=== PATIENT | male | born 1960 | race African-American/Black ===

== ENCOUNTER 2018-12-28 22:28 | Inpatient (IN) | payer OTHER, MEDICAID ==
[~2018-12-28] VITALS: Ht 177.8 cm; Wt 74.4 kg
[2018-12-29] MEDS ORDERED: FUROSEMIDE 40MG/4ML VIAL IV ONE (00:15)
[2018-12-29 00:47] LABS: BASOPHILS % 2.9 % (0.0-2.0); EOSINOPHILS % 6.3 % (0.0-5.0); HEMATOCRIT. 26.9 % (42.0-52.0); HEMOGLOBIN. 8.5 g/dL (14.0-18.0); LYMPHOCYTES % 9.6 % (20.0-50.0); MEAN CORPUSCULAR HEMOGLOBIN 25.8 pg (28.0-32.0); MEAN CORPUSCULAR VOLUME 81.9 fL (80.0-94.0); MEAN PLATELET VOLUME 9.2 fl (7.4-10.4); MONOCYTES % 9.2 % (2.0-8.0); PLATELET 271 x1000/uL (130-400); RED BLOOD CELL COUNT 3.29 mill/uL (4.7-6.1); RED CELL DISTRIBUTION WIDTH 25.1 % (11.6-14.6)
[2018-12-29 00:54] LABS: CHLORIDE 106 mEq/L (98-107)
[2018-12-29 01:10] LABS: INR 1.1
[2018-12-29 01:19] LABS: PLATELET ESTIMATE NORMAL
[2018-12-29] MEDS ORDERED: HYDROCODONE/ACETAMINOPHEN 5/325MG TABLET PO ONE (05:00)
[2018-12-29] MEDS ORDERED: ONDANSETRON HCL 4MG/2ML INJ IV PRN (10:00)
[2018-12-29] MEDS ORDERED: ACETAMINOPHEN 325MG TABLET PO PRN (10:00)
[2018-12-29 10:26] LABS: CLARITY URINE CLEAR (CLEAR); COLOR URINE YELLOW (YELLOW); KETONES URINE NEGATIVE (NEGATIVE); LEUKOCYTE ESTERASE URINE NEGATIVE (NEGATIVE); NITRITE URINE NEGATIVE (NEGATIVE); OCCULT BLOOD URINE NEGATIVE (NEGATIVE); PROTEIN URINE TRACE (NEGATIVE); SPECIFIC GRAVITY URINE 1.011 (1.005-1.030)
[2018-12-29 10:36] LABS: *AMPHETAMINES SCREEN URINE NEGATIVE (NEGATIVE); *BARBITURATES SCREEN URINE NEGATIVE (NEGATIVE); *BENZODIAZEPINES SCREEN URINE NEGATIVE (NEGATIVE); *COCAINE SCREEN URINE NEGATIVE (NEGATIVE); METHADONE URINE SCREEN NEGATIVE (NEGATIVE)
[2018-12-29 10:37] LABS: CANNABINOID URINE SCREEN NEGATIVE (NEGATIVE); OPIATES URINE SCREEN PRESUMTIVE POSITIVE (NEGATIVE); PHENCYCLIDINE URINE SCREEN NEGATIVE (NEGATIVE)
[2018-12-29 11:02] LABS: HEMATOCRIT 26.9 % (42.0-52.0); HEMOGLOBIN 8.4 g/dL (14.0-18.0)
[2018-12-29 12:00] VITALS: BP 94/69
[2018-12-29] MEDS ORDERED: FUROSEMIDE 40MG/4ML VIAL IVP SCH (12:15)
[2018-12-29] MEDS: PANTOPRAZOLE SODIUM 40 MG/VIAL IV SCH ×2 (12:37→21:00)
[2018-12-29] MEDS: HYDROCODONE/ACETAMINOPHEN 5/325MG TABLET PO PRN ×2 (12:43→23:04)
[2018-12-29] MEDS ORDERED: CARV3.1242 MT (14:57)
[2018-12-29] MEDS ORDERED: ATOR40TA70 MT (14:57)
[2018-12-29] MEDS ORDERED: HYDR-4134 MT (14:58)
[2018-12-29] MEDS ORDERED: PROT40 PO (14:58)
[2018-12-29] MEDS ORDERED: POTA-81 MT (14:58)
[2018-12-29] MEDS ORDERED: ISOS30TA6 MT (14:58)
[2018-12-29] MEDS ORDERED: ALLO100T MT (14:58)
[2018-12-29] MEDS ORDERED: CYCL5TAB PO (14:58)
[2018-12-29] MEDS ORDERED: LEVO50TA8 MT (14:58)
[2018-12-29] MEDS ORDERED: LISI10TA5 MT (14:58)
[2018-12-29] MEDS ORDERED: SUCR1TAB PO (14:58)
[2018-12-29] MEDS ORDERED: FURO-151 PO (14:58)
[2018-12-29 16:34] LABS: TOTAL IRON BINDING CAPACITY 571 ug/dL (250-450)
[2018-12-29 16:52] LABS: FERRITIN 27 ng/mL (22-322)
[2018-12-29 16:57] LABS: VITAMIN B12 SERUM 1967 pg/mL (211-911)
[2018-12-29] MEDS: SUCRALFATE 1 G/10 ML UDC PO SCH ×2 (17:00→21:00)
[2018-12-29 17:03] LABS: HEPATITIS B SURFACE ANTIGEN NEGATIVE
[2018-12-29 17:18] VITALS: BP 100/70
[2018-12-29 17:33] LABS: HEPATITIS A AB IGM NEGATIVE (NEGATIVE)
[2018-12-29 19:19] LABS: HEMATOCRIT 31.1 % (42.0-52.0); HEMOGLOBIN 9.1 g/dL (14.0-18.0)
[2018-12-30 04:00] VITALS: BP 99/73
[2018-12-30 07:55] LABS: BASOPHILS % 3.9 % (0.0-2.0); EOSINOPHILS % 6.7 % (0.0-5.0); HEMATOCRIT. 28.2 % (42.0-52.0); HEMOGLOBIN. 8.8 g/dL (14.0-18.0); LYMPHOCYTES % 19.7 % (20.0-50.0); MEAN CORPUSCULAR HEMOGLOBIN 25.6 pg (28.0-32.0); MEAN CORPUSCULAR VOLUME 82.3 fL (80.0-94.0); MEAN PLATELET VOLUME 9.3 fl (7.4-10.4); NEUTROPHILS % 58.7 % (40.0-76.0); PLATELET 268 x1000/uL (130-400); RED BLOOD CELL COUNT 3.42 mill/uL (4.7-6.1); RED CELL DISTRIBUTION WIDTH 25.2 % (11.6-14.6)
[2018-12-30] MEDS: PANTOPRAZOLE SODIUM 40 MG/VIAL IV SCH (08:33)
[2018-12-30] MEDS: SUCRALFATE 1 G/10 ML UDC PO SCH (08:33)
[2018-12-30] MEDS: HYDROCODONE/ACETAMINOPHEN 5/325MG TABLET PO PRN (08:35)
[2018-12-30] MEDS ORDERED: SPIRONOLACTONE 25MG TABLET PO SCH (09:00)
[2018-12-30] MEDS ORDERED: LACTULOSE 20G/30ML UDC PO SCH (11:00)
[2018-12-30 11:59] VITALS: BP 112/69
[2018-12-30] MEDS ORDERED: FERROUS SULFATE 325MG TABLET PO SCH (13:10)
== END 2018-12-30 12:12 | disposition home or self-care (01) | DRG 377 ==
LOC: ER 12-29 00:19 → 7WST 12-29 03:01 → EDBEDREQ 12-29 03:17 → EDBEDREQTM 12-29 03:17 → ENRESERV 12-29 10:17
PROVIDERS: ADMIT Internal Medicine; ATTEND Internal Medicine
DX: K25.4 Chronic or unspecified gastric ulcer with hemorrhage (principal); E43 Unspecified severe protein-calorie malnutrition; N17.0 Acute kidney failure with tubular necrosis; E87.1 Hypo-osmolality and hyponatremia; B19.20 Unspecified viral hepatitis C without hepatic coma; K29.71 Gastritis, unspecified, with bleeding; F17.210 Nicotine dependence, cigarettes, uncomplicated; J44.9 Chronic obstructive pulmonary disease, unspecified; I50.9 Heart failure, unspecified; I11.0 Hypertensive heart disease with heart failure; K70.9 Alcoholic liver disease, unspecified; K80.20 Calculus of gallbladder without cholecystitis without obstruction; R74.0 Nonspecific elevation of levels of transaminase and lactic acid dehydrogenase [LDH]; R07.89 Other chest pain; I95.9 Hypotension, unspecified; R94.31 Abnormal electrocardiogram [ECG] [EKG]; Z79.899 Other long term (current) drug therapy; Z71.6 Tobacco abuse counseling; Z68.23 Body mass index [BMI] 23.0-23.9, adult
CPT/HCPCS: 36415; 71045; 76700; 80048; 80076; 80305; 81003; 82140; 82248; 82607; 82728; 82746; 83540; 83550; 83605; 83880; 84484; 85014; 85018; 86705; 86709; 86803; 87340; 93005; 93306; 93970; 99285; C9113; J1940; J2405

== ENCOUNTER 2019-01-11 06:59 | Inpatient (IN) | payer OTHER, MEDICAID ==
[2019-01-11] VITALS (15 sets, daily range): BP systolic 75–106; BP diastolic 41–76
[~2019-01-11] VITALS: Ht 177.8 cm; Wt 76.7 kg
[~2019-01-11 06:59] MED LIST: ALLO100T MT; ATOR40TA70 MT; CARV3.1242 MT; CYCL5TAB PO; FURO-151 PO; HYDR-4134 MT; ISOS30TA6 MT; LEVO50TA8 MT; LISI10TA5 MT; POTA-81 MT; PROT40 PO; SUCR1TAB PO
[2019-01-11] MEDS ORDERED: MORPHINE SULFATE 4 MG/ML CPJ (NOT FOR IM USE) IV STA (07:21)
[2019-01-11] MEDS ORDERED: ONDANSETRON HCL 4MG/2ML INJ IV STA (07:21)
[2019-01-11 07:55] LABS: MEAN CORPUSCULAR HEMOGLOBIN 22.7 pg (28.0-32.0); MEAN CORPUSCULAR VOLUME 76.2 fL (80.0-94.0); MEAN PLATELET VOLUME 8.7 fl (7.4-10.4); PLATELET 435 x1000/uL (130-400); RED BLOOD CELL COUNT 1.91 mill/uL (4.7-6.1); RED CELL DISTRIBUTION WIDTH 24.9 % (11.6-14.6)
[2019-01-11 08:02] LABS: CHLORIDE 108 mEq/L (98-107)
[2019-01-11 08:03] LABS: HEMATOCRIT. 14.6 % (42.0-52.0); HEMOGLOBIN. 4.3 g/dL (14.0-18.0)
[2019-01-11 08:04] LABS: INR 1.1; PARTIAL THROMBOPLASTIN TIME 28.5 sec (23.4-31.0); PROTHROMBIN TIME 11.5 sec (9.6-11.0)
[2019-01-11 08:06] LABS: ETHANOL BLOOD < 10 mg/dL
[2019-01-11 08:30] LABS: NUCLEATED RED BLOOD CELLS 6 /100 WBC
[2019-01-11 08:31] LABS: PLATELET ESTIMATE INCREASED
[2019-01-11] MEDS ORDERED: OCTREOTIDE 1,000 MCG in SODIUM CHLORIDE 0.9% 100 ML IV ONE (09:15)
[2019-01-11] MEDS ORDERED: PANTOPRAZOLE 80 MG in SODIUM CHLORIDE 0.9% 100 ML IV SCH (09:15)
[2019-01-11] MEDS ORDERED: PANTOPRAZOLE SODIUM 40 MG/VIAL IV ONE ×2 (09:15→09:23)
[2019-01-11] MEDS ORDERED: OCTREOTIDE 1,000 MCG in SODIUM CHLORIDE 0.9% 100 ML IV NR (09:30)
[2019-01-11] MEDS ORDERED: PANTOPRAZOLE 80 MG in SODIUM CHLORIDE 0.9% 100 ML IV ONE (09:30)
[2019-01-11] MEDS ORDERED: MAGNESIUM/ALUMINUM HYDROXIDE/SIMETHICONE 30ML UDC PO PRN (15:30)
[2019-01-11] MEDS ORDERED: CLONIDINE 0.1MG TABLET PO PRN (15:30)
[2019-01-11] MEDS ORDERED: ONDANSETRON HCL 4MG/2ML INJ IV PRN (15:30)
[2019-01-11] MEDS: MORPHINE SULFATE 2 MG/ML CPJ (NOT FOR IM USE) IV PRN ×2 (15:44→22:03)
[2019-01-11 17:21] LABS: *AMPHETAMINES SCREEN URINE NEGATIVE (NEGATIVE); *BARBITURATES SCREEN URINE NEGATIVE (NEGATIVE); *BENZODIAZEPINES SCREEN URINE NEGATIVE (NEGATIVE); *COCAINE SCREEN URINE NEGATIVE (NEGATIVE); METHADONE URINE SCREEN NEGATIVE (NEGATIVE); OPIATES URINE SCREEN PRESUMTIVE POSITIVE (NEGATIVE)
[2019-01-11 17:22] LABS: CANNABINOID URINE SCREEN NEGATIVE (NEGATIVE); PHENCYCLIDINE URINE SCREEN NEGATIVE (NEGATIVE)
[2019-01-11 18:42] LABS: TOTAL IRON BINDING CAPACITY 562 ug/dL (250-450)
[2019-01-11] MEDS ORDERED: BENZONATATE 100MG CAPSULE PO PRN (18:45)
[2019-01-11 19:20] LABS: HEMATOCRIT 22.7 % (42.0-52.0); MEAN CORPUSCULAR HEMOGLOBIN 24.2 pg (28.0-32.0); MEAN CORPUSCULAR VOLUME 84.4 fL (80.0-94.0); PLATELET 373 x1000/uL (130-400); RED CELL DISTRIBUTION WIDTH 23.1 % (11.6-14.6)
[2019-01-11 19:27] LABS: HEMOGLOBIN 6.5 g/dL (14.0-18.0)
[2019-01-11] MEDS ORDERED: BISACODYL 5MG TABLET PO NR ×2 (20:00→23:00)
[2019-01-11] MEDS ORDERED: METOCLOPRAMIDE HCL 10MG/2ML VIAL IV NR ×2 (20:00→23:00)
[2019-01-11] MEDS ORDERED: SORBITOL 70% SOLN 30ML PO NR ×2 (21:00→23:55)
[2019-01-11] MEDS ORDERED: PANTOPRAZOLE SODIUM 40 MG/VIAL IV SCH (21:00)
[2019-01-12] VITALS (15 sets, daily range): BP systolic 94–109; BP diastolic 54–78
[2019-01-12] MEDS ORDERED: BISACODYL 5MG TABLET PO NR (04:00)
[2019-01-12] MEDS ORDERED: METOCLOPRAMIDE HCL 10MG/2ML VIAL IV NR (04:00)
[2019-01-12] MEDS: MORPHINE SULFATE 2 MG/ML CPJ (NOT FOR IM USE) IV PRN ×2 (04:59→13:22)
[2019-01-12] MEDS ORDERED: SORBITOL 70% SOLN 30ML PO NR (05:00)
[2019-01-12] MEDS ORDERED: LEVOTHYROXINE SODIUM 50MCG TABLET PO SCH (07:30)
[2019-01-12] MEDS ORDERED: ATORVASTATIN CALCIUM 40MG TABLET PO SCH (09:00)
[2019-01-12] MEDS ORDERED: PANTOPRAZOLE SODIUM 40 MG/VIAL IV SCH (09:00)
[2019-01-12] MEDS ORDERED: ALLOPURINOL 100 MG TABLET PO SCH (09:00)
[2019-01-12 09:32] LABS: HEMATOCRIT 29.7 % (42.0-52.0); HEMOGLOBIN 9.4 g/dL (14.0-18.0); MEAN CORPUSCULAR HEMOGLOBIN 25.8 pg (28.0-32.0); MEAN CORPUSCULAR VOLUME 81.3 fL (80.0-94.0); PLATELET 435 x1000/uL (130-400); RED BLOOD CELL COUNT 3.65 mill/uL (4.7-6.1); RED CELL DISTRIBUTION WIDTH 21.7 % (11.6-14.6)
[2019-01-12 09:43] LABS: PHOSPHORUS 4.1 mg/dL (2.5-4.9)
[2019-01-12 10:02] LABS: FOLIC ACID (FOLATE) SERUM 18.9 ng/mL (>5.38)
[2019-01-12] MEDS ORDERED: FUROSEMIDE 40MG/4ML VIAL IVP SCH (11:30)
[2019-01-12] MEDS ORDERED: MIDAZOLAM HCL 5 MG/5 ML VIAL ONE (16:04)
[2019-01-12] MEDS ORDERED: FENTANYL CITRATE/PF 50MCG/ML 2ML VIAL ONE (16:05)
[2019-01-12] MEDS ORDERED: FENTANYL CITRATE/PF 50MCG/ML 2ML VIAL IV PRN (16:12)
[2019-01-12] MEDS ORDERED: MIDAZOLAM HCL 5 MG/5 ML VIAL IV PRN (16:13)
[2019-01-12] MEDS ORDERED: DIPHENHYDRAMINE 50MG/ML VIAL IV PRN (16:20)
[2019-01-12] MEDS ORDERED: DIPHENHYDRAMINE 50MG/ML VIAL ONE (16:21)
[2019-01-12] MEDS ORDERED: ALBUMIN HUMAN 25GM/100ML (25%) IV NR (17:00)
[2019-01-12 19:39] LABS: HEMATOCRIT 26.7 % (42.0-52.0); HEMOGLOBIN 8.3 g/dL (14.0-18.0); MEAN CORPUSCULAR HEMOGLOBIN 25.1 pg (28.0-32.0); MEAN CORPUSCULAR VOLUME 80.2 fL (80.0-94.0); PLATELET 404 x1000/uL (130-400); RED BLOOD CELL COUNT 3.33 mill/uL (4.7-6.1); RED CELL DISTRIBUTION WIDTH 21.7 % (11.6-14.6)
[2019-01-12] MEDS ORDERED: LORAZEPAM 1MG TABLET PO PRN (19:45)
[2019-01-12 20:05] LABS: CLARITY URINE CLEAR (CLEAR); COLOR URINE YELLOW (YELLOW); KETONES URINE NEGATIVE (NEGATIVE); LEUKOCYTE ESTERASE URINE NEGATIVE (NEGATIVE); NITRITE URINE NEGATIVE (NEGATIVE); OCCULT BLOOD URINE NEGATIVE (NEGATIVE); PROTEIN URINE NEGATIVE (NEGATIVE); SPECIFIC GRAVITY URINE 1.006 (1.005-1.030)
== END 2019-01-12 20:26 | disposition left against medical advice (07) | DRG 377 ==
LOC: ER 08:24 → 5EST 09:40 → EDBEDREQTM 09:43 → EDBEDREQSVC 09:43 → EDBEDREQ 09:43 → ENRESERV 10:15
PROVIDERS: ADMIT Internal Medicine; ATTEND Internal Medicine
PROC: 30233N1 Transfusion of Nonautologous Red Blood Cells into Peripheral Vein, Percutaneous Approach (ICD-10-PCS; 2019-01-11)
PROC: 0DB68ZX Excision of Stomach, Via Natural or Artificial Opening Endoscopic, Diagnostic (ICD-10-PCS; principal; 2019-01-12)
DX: K29.71 Gastritis, unspecified, with bleeding (principal); E43 Unspecified severe protein-calorie malnutrition; I50.23 Acute on chronic systolic (congestive) heart failure; J96.00 Acute respiratory failure, unspecified whether with hypoxia or hypercapnia; J18.9 Pneumonia, unspecified organism; I13.0 Hypertensive heart and chronic kidney disease with heart failure and stage 1 through stage 4 chronic kidney disease, or unspecified chronic kidney disease; N17.9 Acute kidney failure, unspecified; I42.9 Cardiomyopathy, unspecified; E87.1 Hypo-osmolality and hyponatremia; E87.2 Acidosis; J44.0 Chronic obstructive pulmonary disease with (acute) lower respiratory infection; K80.20 Calculus of gallbladder without cholecystitis without obstruction; K21.9 Gastro-esophageal reflux disease without esophagitis; K64.8 Other hemorrhoids; B19.20 Unspecified viral hepatitis C without hepatic coma; Z53.29 Procedure and treatment not carried out because of patient's decision for other reasons; D50.9 Iron deficiency anemia, unspecified; G90.8 Other disorders of autonomic nervous system; K59.00 Constipation, unspecified; E03.9 Hypothyroidism, unspecified; F17.210 Nicotine dependence, cigarettes, uncomplicated; I95.9 Hypotension, unspecified; N18.3 Chronic kidney disease, stage 3 (moderate); I27.20 Pulmonary hypertension, unspecified; I08.1 Rheumatic disorders of both mitral and tricuspid valves; K57.91 Diverticulosis of intestine, part unspecified, without perforation or abscess with bleeding; Z68.24 Body mass index [BMI] 24.0-24.9, adult; Z79.899 Other long term (current) drug therapy
CPT/HCPCS: 36415; 36430; 71045; 74176; 76700; 80048; 80061; 80076; 80305; 80320; 81003; 82140; 82270; 82607; 82746; 83540; 83550; 83605; 83735; 83880; 84100; 84443; 84484; 85027; 86850; 86900; 86920; 88305; 88313; 93005; 93970; 96365; 96375; 97162; 97166; 99291; C9113; J1200; J1940; J2250; J2270; J2354; J2405; J2765; J3010; J7050; P9016; P9047; G0480

== ENCOUNTER 2019-01-24 02:58 | Emergency (ER) | payer OTHER, MEDICAID ==
[~2019-01-24] VITALS: Ht 170.2 cm; Wt 70.0 kg
[2019-01-24] MEDS ORDERED: IPRATROPIUM BROMIDE (0.02%) 0.5MG/2.5ML NEB HHN STA (03:35)
[2019-01-24] MEDS ORDERED: ALBUTEROL (0.083%) 2.5MG/3ML NEB HHN STA (03:35)
[2019-01-24 04:26] LABS: HEMOGLOBIN. 8.5 g/dL (14.0-18.0); MEAN CORPUSCULAR HEMOGLOBIN 23.5 pg (28.0-32.0); MEAN CORPUSCULAR VOLUME 77.2 fL (80.0-94.0); MEAN PLATELET VOLUME 8.5 fl (7.4-10.4); PLATELET 313 x1000/uL (130-400); RED BLOOD CELL COUNT 3.63 mill/uL (4.7-6.1); RED CELL DISTRIBUTION WIDTH 24.5 % (11.6-14.6)
[2019-01-24 04:30] LABS: CHLORIDE 112 mEq/L (98-107)
[2019-01-24] MEDS ORDERED: POTASSIUM CHLORIDE INJ 40 MEQ in DEXT 5% WATER 250 ML IV NR (05:00)
[2019-01-24] MEDS ORDERED: FUROSEMIDE 40MG/4ML VIAL IVP NR (05:00)
[2019-01-24 05:31] LABS: NUCLEATED RED BLOOD CELLS 1 /100 WBC; PLATELET ESTIMATE NORMAL
[2019-01-24 05:41] VITALS: BP 121/84
== END 2019-01-24 06:39 | disposition left against medical advice (07) ==
LOC: ER 02:58
DX: I11.0 Hypertensive heart disease with heart failure (principal); I50.9 Heart failure, unspecified; R06.02 Shortness of breath; K21.9 Gastro-esophageal reflux disease without esophagitis; J44.9 Chronic obstructive pulmonary disease, unspecified; Z86.19 Personal history of other infectious and parasitic diseases; Z98.890 Other specified postprocedural states
CPT/HCPCS: 36415; 71045; 80053; 83880; 84484; 85025; 86850; 86900; 86901; 93005; 94660; 96365; 96375; 99284; J1940; J3480; J7060; J7611

== ENCOUNTER 2019-01-29 13:22 | Inpatient (IN) | payer OTHER, MEDICAID ==
[~2019-01-29] VITALS: Ht 170.2 cm; Wt 80.3 kg
[2019-01-29] MEDS ORDERED: IPRATROPIUM BROMIDE (0.02%) 0.5MG/2.5ML NEB HHN STA (13:50)
[2019-01-29] MEDS ORDERED: ALBUTEROL (0.083%) 2.5MG/3ML NEB HHN STA (13:50)
[2019-01-29] MEDS ORDERED: METHYLPREDNISOLONE SOD SUCC 125 MG/2 ML VIAL IV STA (13:50)
[2019-01-29] MEDS ORDERED: ASPIRIN 81MG TABLET PO ONE (14:00)
[2019-01-29] MEDS ORDERED: NITROGLYCERIN OINT 1GM/INCH UDPKT TD ONE (14:00)
[2019-01-29] MEDS ORDERED: FUROSEMIDE 40MG/4ML VIAL IV ONE (14:00)
[2019-01-29] MEDS ORDERED: ALBUTEROL (0.083%) 2.5MG/3ML NEB ONE (14:03)
[2019-01-29 14:14] LABS: MEAN CORPUSCULAR HEMOGLOBIN 23.1 pg (28.0-32.0); MEAN CORPUSCULAR VOLUME 77.1 fL (80.0-94.0); MEAN PLATELET VOLUME 9.3 fl (7.4-10.4); PLATELET 358 x1000/uL (130-400); RED BLOOD CELL COUNT 2.84 mill/uL (4.7-6.1); RED CELL DISTRIBUTION WIDTH 25.6 % (11.6-14.6)
[2019-01-29 14:18] LABS: CHLORIDE 110 mEq/L (98-107)
[2019-01-29 14:21] LABS: HEMATOCRIT. 21.9 % (42.0-52.0); HEMOGLOBIN. 6.6 g/dL (14.0-18.0)
[2019-01-29] MEDS ORDERED: ONDANSETRON HCL 4MG/2ML INJ IV STA (14:32)
[2019-01-29] MEDS ORDERED: MORPHINE SULFATE 4 MG/ML CPJ (NOT FOR IM USE) IV STA (14:32)
[2019-01-29] MEDS ORDERED: SODIUM CHLORIDE 0.9% 1,000 ML IV ONE (14:32)
[2019-01-29 14:39] LABS: NUCLEATED RED BLOOD CELLS 1 /100 WBC; PLATELET ESTIMATE NORMAL
[2019-01-29] MEDS ORDERED: GUAIFENESIN-DM 200MG-20MG/10ML UDC PO ONE (16:15)
[2019-01-29 20:45] VITALS: BP 114/72
[2019-01-29 21:00] VITALS: BP 114/72
[2019-01-29] MEDS: HYDROCODONE/ACETAMINOPHEN 10/325MG TABLET PO PRN (22:01)
[2019-01-29] MEDS: POTASSIUM CHLORIDE 20MEQ TABLET SR PO SCH (22:01)
[2019-01-29] MEDS ORDERED: HYDR-4005 PO (22:46)
[2019-01-30] VITALS (7 sets, daily range): BP systolic 97–152; BP diastolic 66–94
[2019-01-30] MEDS: HYDROCODONE/ACETAMINOPHEN 10/325MG TABLET PO PRN ×3 (04:02→17:51)
[2019-01-30] MEDS: IPRATROPIUM/ALBUTEROL 0.5-3(2.5)MG/3ML NEB HHN SCH ×5 (04:16→17:12)
[2019-01-30] MEDS: FUROSEMIDE 40MG/4ML VIAL IVP SCH ×2 (06:26→17:40)
[2019-01-30] MEDS ORDERED: LEVOTHYROXINE SODIUM 50MCG TABLET PO SCH (07:20)
[2019-01-30 08:12] LABS: HEMATOCRIT. 24.1 % (42.0-52.0); HEMOGLOBIN. 7.5 g/dL (14.0-18.0); MEAN CORPUSCULAR HEMOGLOBIN 23.8 pg (28.0-32.0); MEAN CORPUSCULAR VOLUME 76.6 fL (80.0-94.0); MEAN PLATELET VOLUME 9.2 fl (7.4-10.4); PLATELET 330 x1000/uL (130-400); RED BLOOD CELL COUNT 3.14 mill/uL (4.7-6.1); RED CELL DISTRIBUTION WIDTH 23.3 % (11.6-14.6)
[2019-01-30] MEDS: POTASSIUM CHLORIDE 20MEQ TABLET SR PO SCH (08:39)
[2019-01-30] MEDS: PANTOPRAZOLE 40MG DR TABLET PO SCH ×2 (08:55→17:41)
[2019-01-30] MEDS ORDERED: ALLOPURINOL 100 MG TABLET PO SCH (09:00)
[2019-01-30] MEDS ORDERED: ATORVASTATIN CALCIUM 40MG TABLET PO SCH (09:00)
[2019-01-30] MEDS ORDERED: CARVEDILOL 3.125 MG TABLET PO SCH (09:00)
[2019-01-30] MEDS ORDERED: ISOSORBIDE MONONITRATE 30MG TABLET SR 24HR PO SCH (09:00)
[2019-01-30] MEDS ORDERED: HYDRALAZINE HCL 25MG TABLET PO SCH (09:00)
[2019-01-30] MEDS ORDERED: LISINOPRIL 10MG TABLET PO SCH (09:00)
[2019-01-30] MEDS: SUCRALFATE 1 G/10 ML UDC PO SCH ×2 (12:20→17:41)
[2019-01-30 13:47] LABS: NUCLEATED RED BLOOD CELLS 1 /100 WBC
[2019-01-30 13:48] LABS: PLATELET ESTIMATE NORMAL
== END 2019-01-30 20:35 | disposition short-term general hospital (02) | DRG 682 ==
LOC: ER 13:22 → 6WST 17:25 → ENRESERV 19:22
PROVIDERS: ADMIT Internal Medicine; ATTEND Internal Medicine
PROC: 30233N1 Transfusion of Nonautologous Red Blood Cells into Peripheral Vein, Percutaneous Approach (ICD-10-PCS; principal; 2019-01-30)
DX: N17.9 Acute kidney failure, unspecified (principal); J96.00 Acute respiratory failure, unspecified whether with hypoxia or hypercapnia; E43 Unspecified severe protein-calorie malnutrition; I50.23 Acute on chronic systolic (congestive) heart failure; I13.0 Hypertensive heart and chronic kidney disease with heart failure and stage 1 through stage 4 chronic kidney disease, or unspecified chronic kidney disease; J44.1 Chronic obstructive pulmonary disease with (acute) exacerbation; K92.2 Gastrointestinal hemorrhage, unspecified; I42.9 Cardiomyopathy, unspecified; B19.20 Unspecified viral hepatitis C without hepatic coma; D64.9 Anemia, unspecified; E03.9 Hypothyroidism, unspecified; Z68.27 Body mass index [BMI] 27.0-27.9, adult; E78.5 Hyperlipidemia, unspecified; E87.6 Hypokalemia; E87.8 Other disorders of electrolyte and fluid balance, not elsewhere classified; F19.10 Other psychoactive substance abuse, uncomplicated; F10.10 Alcohol abuse, uncomplicated; F17.210 Nicotine dependence, cigarettes, uncomplicated; K21.9 Gastro-esophageal reflux disease without esophagitis; N18.9 Chronic kidney disease, unspecified; Z87.11 Personal history of peptic ulcer disease; Z79.899 Other long term (current) drug therapy
CPT/HCPCS: 36415; 71045; 80048; 82270; 82728; 83540; 83550; 83880; 84145; 84484; 86850; 86900; 86920; 93005; 94640; 96361; 96374; 96375; 99285; J1940; J2270; J2405; J2930; J7030; J7040; J7611; J7620; P9016; P9021

== ENCOUNTER 2019-03-01 06:36 | Inpatient (IN) | payer OTHER, MEDICAID ==
[~2019-03-01] VITALS: Ht 177.8 cm; Wt 71.7 kg
[~2019-03-01 06:36] MED LIST changes: +HYDR-4005 PO
[2019-03-01] MEDS ORDERED: IPRATROPIUM BROMIDE (0.02%) 0.5MG/2.5ML NEB HHN STA (06:51)
[2019-03-01] MEDS ORDERED: METHYLPREDNISOLONE SOD SUCC 125 MG/2 ML VIAL IV STA (06:51)
[2019-03-01] MEDS ORDERED: MAGNESIUM 2 G PREMIX 50 ML IV STA (06:51)
[2019-03-01] MEDS ORDERED: ALBUTEROL (0.083%) 2.5MG/3ML NEB HHN STA (06:51)
[2019-03-01] MEDS ORDERED: FUROSEMIDE 40MG/4ML VIAL IV ONE (07:00)
[2019-03-01] MEDS ORDERED: LEVOFLOXACIN 500MG PREMIX 100 ML IV ONE (08:30)
[2019-03-01 08:41] LABS: HEMATOCRIT. 25.7 % (42.0-52.0); HEMOGLOBIN. 7.9 g/dL (14.0-18.0); MEAN CORPUSCULAR HEMOGLOBIN 22.1 pg (28.0-32.0); MEAN CORPUSCULAR VOLUME 72.4 fL (80.0-94.0); RED BLOOD CELL COUNT 3.55 mill/uL (4.7-6.1); RED CELL DISTRIBUTION WIDTH 25.5 % (11.6-14.6)
[2019-03-01 08:47] LABS: CHLORIDE 109 mEq/L (98-107)
[2019-03-01 08:51] LABS: ETHANOL BLOOD < 10 mg/dL
[2019-03-01] MEDS ORDERED: POTASSIUM CHLORIDE 20MEQ TABLET SR PO ONE (09:15)
[2019-03-01 09:34] LABS: PLATELET ESTIMATE NORMAL
[2019-03-01] MEDS ORDERED: MAGNESIUM/ALUMINUM HYDROXIDE/SIMETHICONE 30ML UDC PO ONE (09:45)
[2019-03-01] MEDS ORDERED: ACETAMINOPHEN 325MG TABLET PO PRN (09:45)
[2019-03-01] MEDS ORDERED: POTASSIUM CHLORIDE 20MEQ TABLET SR PO NR (16:00)
[2019-03-01] MEDS: HYDROCODONE/ACETAMINOPHEN 5/325MG TABLET PO PRN ×2 (16:38→21:21)
[2019-03-01 18:58] VITALS: BP 100/65
[2019-03-01 20:00] VITALS: BP 98/66
[2019-03-01] MEDS: CARVEDILOL 3.125 MG TABLET PO SCH (21:00)
[2019-03-01] MEDS: FUROSEMIDE 40MG/4ML VIAL IVP SCH (21:20)
[2019-03-01] MEDS: DOCUSATE SODIUM 250MG CAPSULE PO SCH (21:22)
[2019-03-01 21:29] VITALS: BP 98/66
[2019-03-01 23:46] VITALS: BP 90/55
[2019-03-02 04:00] VITALS: BP 92/63
[2019-03-02] MEDS: IPRATROPIUM/ALBUTEROL 0.5-3(2.5)MG/3ML NEB HHN PRN ×4 (04:17→21:36)
[2019-03-02] MEDS: HYDROCODONE/ACETAMINOPHEN 5/325MG TABLET PO PRN ×3 (05:48→19:08)
[2019-03-02 05:53] LABS: HEMATOCRIT. 25.2 % (42.0-52.0); HEMOGLOBIN. 7.7 g/dL (14.0-18.0); MEAN CORPUSCULAR VOLUME 72.4 fL (80.0-94.0); MEAN PLATELET VOLUME 9.3 fl (7.4-10.4); PLATELET 251 x1000/uL (130-400); RED BLOOD CELL COUNT 3.48 mill/uL (4.7-6.1); RED CELL DISTRIBUTION WIDTH 25.5 % (11.6-14.6)
[2019-03-02] MEDS: FUROSEMIDE 40MG/4ML VIAL IVP SCH ×2 (08:53→17:09)
[2019-03-02] MEDS: LEVOFLOXACIN 250MG PREMIX 50 ML IV SCH (08:58)
[2019-03-02] MEDS: DOCUSATE SODIUM 250MG CAPSULE PO SCH (09:00)
[2019-03-02] MEDS: LEVOTHYROXINE SODIUM 50MCG TABLET PO SCH (09:00)
[2019-03-02] MEDS: CARVEDILOL 3.125 MG TABLET PO SCH ×2 (09:00→20:04)
[2019-03-02] MEDS ORDERED: LEVOFLOXACIN 500MG PREMIX 100 ML IV SCH (09:00)
[2019-03-02] MEDS: FERROUS SULFATE 325MG TABLET PO SCH ×3 (09:00→19:10)
[2019-03-02] MEDS: LOSARTAN POTASSIUM 25 MG TABLET PO SCH (09:01)
[2019-03-02 12:00] VITALS: BP 103/71
[2019-03-02] MEDS ORDERED: PNEUMOCOCCAL 23-VAL P-SAC VAC 0.5 ML IM ONE (12:00)
[2019-03-02 14:05] LABS: PLATELET ESTIMATE NORMAL
[2019-03-02 20:00] VITALS: BP 91/66
[2019-03-02] MEDS: ZOLPIDEM TARTRATE 5MG TABLET PO PRN (20:04)
[2019-03-02] MEDS ORDERED: ONDANSETRON HCL 4MG/2ML INJ IV PRN (23:30)
[2019-03-03] VITALS (9 sets, daily range): BP systolic 57–124; BP diastolic 26–89
[2019-03-03 00:08] LABS: CLARITY URINE CLEAR (CLEAR); COLOR URINE YELLOW (YELLOW); KETONES URINE NEGATIVE (NEGATIVE); LEUKOCYTE ESTERASE URINE NEGATIVE (NEGATIVE); NITRITE URINE NEGATIVE (NEGATIVE); OCCULT BLOOD URINE NEGATIVE (NEGATIVE); PROTEIN URINE 2+ (NEGATIVE)
[2019-03-03] MEDS: IPRATROPIUM/ALBUTEROL 0.5-3(2.5)MG/3ML NEB HHN PRN ×3 (00:08→16:31)
[2019-03-03 00:17] LABS: *AMPHETAMINES SCREEN URINE NEGATIVE (NEGATIVE)
[2019-03-03 00:18] LABS: *BARBITURATES SCREEN URINE NEGATIVE (NEGATIVE); *BENZODIAZEPINES SCREEN URINE NEGATIVE (NEGATIVE); *COCAINE SCREEN URINE NEGATIVE (NEGATIVE); METHADONE URINE SCREEN NEGATIVE (NEGATIVE); OPIATES URINE SCREEN PRESUMTIVE POSITIVE (NEGATIVE); PHENCYCLIDINE URINE SCREEN NEGATIVE (NEGATIVE)
[2019-03-03 00:19] LABS: CANNABINOID URINE SCREEN NEGATIVE (NEGATIVE)
[2019-03-03] MEDS: HYDROCODONE/ACETAMINOPHEN 5/325MG TABLET PO PRN (05:03)
[2019-03-03] MEDS: FUROSEMIDE 40MG/4ML VIAL IVP SCH ×2 (06:38→18:15)
[2019-03-03] MEDS: LEVOTHYROXINE SODIUM 50MCG TABLET PO SCH (08:37)
[2019-03-03] MEDS: FERROUS SULFATE 325MG TABLET PO SCH ×3 (08:37→18:10)
[2019-03-03] MEDS: CARVEDILOL 3.125 MG TABLET PO SCH ×2 (08:38→20:30)
[2019-03-03] MEDS: LOSARTAN POTASSIUM 25 MG TABLET PO SCH (08:38)
[2019-03-03] MEDS: LEVOFLOXACIN 250MG PREMIX 50 ML IV SCH (08:42)
[2019-03-03] MEDS: DOCUSATE SODIUM 250MG CAPSULE PO SCH (08:46)
[2019-03-03 10:12] LABS: HEMATOCRIT. 26.5 % (42.0-52.0); HEMOGLOBIN. 7.4 g/dL (14.0-18.0); MEAN CORPUSCULAR HEMOGLOBIN 21.3 pg (28.0-32.0); MEAN CORPUSCULAR VOLUME 76.3 fL (80.0-94.0); PLATELET 282 x1000/uL (130-400); RED BLOOD CELL COUNT 3.47 mill/uL (4.7-6.1); RED CELL DISTRIBUTION WIDTH 25.1 % (11.6-14.6)
[2019-03-03] MEDS: ONDANSETRON HCL 4MG/2ML INJ IV PRN ×2 (10:53→21:49)
[2019-03-03] MEDS ORDERED: DEXTROSE 50% WATER 50ML SYRINGE IV ONE (11:02)
[2019-03-03] MEDS ORDERED: DEXTROSE 50% WATER 50ML SYRINGE IV PRN (11:15)
[2019-03-03] MEDS ORDERED: DEXT 5%/0.45% NACL 1000ML 1,000 ML IV SCH (14:00)
[2019-03-03] MEDS: DEXTROSE 50% WATER 50ML SYRINGE IV PRN (17:37)
[2019-03-03] MEDS: BLOOD SUGAR DIAGNOSTIC STRIP TEST SCH ×2 (17:40→20:56)
[2019-03-03] MEDS: IPRATROPIUM/ALBUTEROL 0.5-3(2.5)MG/3ML NEB HHN SCH (19:51)
[2019-03-03] MEDS ORDERED: DEXT 10% WATER 1,000 ML IV SCH (20:00)
[2019-03-03 20:38] LABS: BG BASE EXCESS -17.3 mmol/L (-2.0-2.0); BG CARBOXYHEMOGLOBIN 0.6 % (0.5-1.5); BG DEOXYHEMOGLOBIN 9.1 % (0.0-5.0); BG FRACTION INSPIRED OXYGEN 36; BG HCO3 ACT 7.7 mmol/L (22.0-26.0); BG METHEMOGLOBIN 0.4 % (0.0-1.5); BG OXYGEN SATURATION 90.8 % (92.0-98.5); BG OXYHEMOGLOBIN 89.9 % (94.0-97.0); BG PCO2 16.9 mmHg (35.0-45.0); BG PH 7.276 (7.350-7.450); BG PO2 71.4 mmHg (75.0-100.0); BG SAMPLE SITE RIGHT RADIAL; BG TOTAL HEMOGLOBIN 7.9 g/dL (12.0-18.0); BG VENT MODE NASAL CANNULA
[2019-03-03] MEDS: PIPERACILLIN/TAZOBACTAM 2.25 G in DEXTROSE 5% WATER 50 ML IV SCH (20:56)
[2019-03-03] MEDS: ZOLPIDEM TARTRATE 5MG TABLET PO PRN (21:50)
[2019-03-04] VITALS (44 sets, daily range): BP systolic 96–199; BP diastolic 46–136
[2019-03-04] MEDS: DEXTROSE 50% WATER 50ML SYRINGE IV PRN ×2 (00:04→00:54)
[2019-03-04] MEDS ORDERED: FUROSEMIDE 40MG/4ML VIAL IVP SCH (00:15)
[2019-03-04] MEDS ORDERED: SODIUM BICARBONATE 8.4% 1 MEQ/ML 50ML SYR IV ONE (00:15)
[2019-03-04] MEDS: PIPERACILLIN/TAZOBACTAM 2.25 G in DEXTROSE 5% WATER 50 ML IV SCH ×4 (00:15→18:06)
[2019-03-04 00:18] LABS: BG BASE EXCESS -20.8 mmol/L (-2.0-2.0); BG BILEVEL POS AIRWAY PRESSURE 15/5; BG CARBOXYHEMOGLOBIN 0.6 % (0.5-1.5); BG DEOXYHEMOGLOBIN 5.9 % (0.0-5.0); BG FRACTION INSPIRED OXYGEN 40; BG HCO3 ACT 6.3 mmol/L (22.0-26.0); BG METHEMOGLOBIN 0.6 % (0.0-1.5); BG OXYHEMOGLOBIN 92.9 % (94.0-97.0); BG PCO2 18.8 mmHg (35.0-45.0); BG PH 7.142 (7.350-7.450); BG PO2 95.9 mmHg (75.0-100.0); BG SAMPLE SITE RIGHT RADIAL; BG TOTAL HEMOGLOBIN 7.8 g/dL (12.0-18.0); BG VENT MODE MASK - BIPAP; BG VENT RATE 20 set
[2019-03-04] MEDS: IPRATROPIUM/ALBUTEROL 0.5-3(2.5)MG/3ML NEB HHN SCH ×5 (00:30→15:30)
[2019-03-04 05:00] LABS: HEMATOCRIT. 24.2 % (42.0-52.0); MEAN CORPUSCULAR HEMOGLOBIN 21.7 pg (28.0-32.0); MEAN CORPUSCULAR VOLUME 76.7 fL (80.0-94.0); MEAN PLATELET VOLUME 10.2 fl (7.4-10.4); PLATELET 276 x1000/uL (130-400); RED BLOOD CELL COUNT 3.15 mill/uL (4.7-6.1); RED CELL DISTRIBUTION WIDTH 24.7 % (11.6-14.6)
[2019-03-04 05:08] LABS: HEMOGLOBIN. 6.8 g/dL (14.0-18.0)
[2019-03-04 06:10] LABS: NUCLEATED RED BLOOD CELLS 1 /100 WBC; PLATELET ESTIMATE NORMAL
[2019-03-04] MEDS: BLOOD SUGAR DIAGNOSTIC STRIP TEST SCH ×3 (06:12→16:30)
[2019-03-04] MEDS: FERROUS SULFATE 325MG TABLET PO SCH ×3 (06:28→17:00)
[2019-03-04] MEDS: LEVOTHYROXINE SODIUM 50MCG TABLET PO SCH (06:29)
[2019-03-04] MEDS: CARVEDILOL 3.125 MG TABLET PO SCH (08:28)
[2019-03-04] MEDS: LOSARTAN POTASSIUM 25 MG TABLET PO SCH (08:28)
[2019-03-04] MEDS: FUROSEMIDE 40MG/4ML VIAL IVP SCH (08:32)
[2019-03-04] MEDS: DOCUSATE SODIUM 250MG CAPSULE PO SCH (08:32)
[2019-03-04] MEDS ORDERED: LIDOCAINE HCL 1% 20ML VIAL (Pyxis) INJ ONE (09:22)
[2019-03-04 09:36] LABS: BG BASE EXCESS -3.5 mmol/L (-2.0-2.0); BG BILEVEL POS AIRWAY PRESSURE 15/5; BG CARBOXYHEMOGLOBIN 0.8 % (0.5-1.5); BG DEOXYHEMOGLOBIN 1.7 % (0.0-5.0); BG FRACTION INSPIRED OXYGEN 40; BG HCO3 ACT 20.2 mmol/L (22.0-26.0); BG METHEMOGLOBIN 0.6 % (0.0-1.5); BG OXYGEN SATURATION 98.3 % (92.0-98.5); BG OXYHEMOGLOBIN 96.9 % (94.0-97.0); BG PCO2 30.9 mmHg (35.0-45.0); BG PH 7.434 (7.350-7.450); BG PO2 118.2 mmHg (75.0-100.0); BG SAMPLE SITE RIGHT RADIAL; BG TOTAL HEMOGLOBIN 7.3 g/dL (12.0-18.0); BG VENT MODE MASK - BIPAP; BG VENT RATE 20 set
[2019-03-04] MEDS ORDERED: SODIUM POLYSTYRENE SULFONATE 15 G/60 ML BOT PO NR (10:00)
[2019-03-04 10:36] LABS: CREATINE KINASE 210 IU/L (39-308)
[2019-03-04] MEDS ORDERED: SODIUM BICARBONATE 100 MEQ in DEXTROSE 5% WATER 1,000 ML IV SCH (11:00)
[2019-03-04 11:47] LABS: NUCLEATED RED BLOOD CELLS 1 /100 WBC; PLATELET ESTIMATE NORMAL
[2019-03-04] MEDS ORDERED: LEVOTHYROXINE SODIUM 100MCG TABLET PO SCH (17:45)
[2019-03-07 13:11] LABS: C-PEPTIDE 7.4 ng/mL (1.1-4.4); INSULIN 11.2 uIU/mL (2.6-24.9)
[2019-03-09 15:09] LABS: PRO INSULIN 27.6 pmol/L (0.0-10.0)
== END 2019-03-04 20:45 | disposition left against medical advice (07) | DRG 291 ==
LOC: ER 06:36 → 7WST 08:42 → EDBEDREQTM 08:45 → EDBEDREQ 08:45 → ENRESERV 17:00 → MICUNO 03-03 23:18
PROVIDERS: ADMIT Internal Medicine; ATTEND Internal Medicine
PROC: 5A09357 Assistance with Respiratory Ventilation, Less than 24 Consecutive Hours, Continuous Positive Airway Pressure (ICD-10-PCS; 2019-03-03)
PROC: 05H533Z Insertion of Infusion Device into Right Subclavian Vein, Percutaneous Approach (ICD-10-PCS; principal; 2019-03-04)
PROC: B546ZZA Ultrasonography of Right Subclavian Vein, Guidance (ICD-10-PCS; 2019-03-04)
PROC: 30233N1 Transfusion of Nonautologous Red Blood Cells into Peripheral Vein, Percutaneous Approach (ICD-10-PCS; 2019-03-04)
DX: I13.0 Hypertensive heart and chronic kidney disease with heart failure and stage 1 through stage 4 chronic kidney disease, or unspecified chronic kidney disease (principal); I50.23 Acute on chronic systolic (congestive) heart failure; J96.20 Acute and chronic respiratory failure, unspecified whether with hypoxia or hypercapnia; E43 Unspecified severe protein-calorie malnutrition; N17.9 Acute kidney failure, unspecified; J18.9 Pneumonia, unspecified organism; E87.2 Acidosis; J44.0 Chronic obstructive pulmonary disease with (acute) lower respiratory infection; G93.40 Encephalopathy, unspecified; I42.9 Cardiomyopathy, unspecified; E87.6 Hypokalemia; B19.20 Unspecified viral hepatitis C without hepatic coma; E03.9 Hypothyroidism, unspecified; E78.5 Hyperlipidemia, unspecified; E87.8 Other disorders of electrolyte and fluid balance, not elsewhere classified; K21.9 Gastro-esophageal reflux disease without esophagitis; F10.20 Alcohol dependence, uncomplicated; Z60.2 Problems related to living alone; E66.9 Obesity, unspecified; F17.210 Nicotine dependence, cigarettes, uncomplicated; N18.9 Chronic kidney disease, unspecified; I07.1 Rheumatic tricuspid insufficiency; I27.20 Pulmonary hypertension, unspecified; K29.70 Gastritis, unspecified, without bleeding; D50.9 Iron deficiency anemia, unspecified; E16.2 Hypoglycemia, unspecified; E78.00 Pure hypercholesterolemia, unspecified; E87.5 Hyperkalemia; Z71.6 Tobacco abuse counseling; Z99.81 Dependence on supplemental oxygen; Z71.41 Alcohol abuse counseling and surveillance of alcoholic; Z80.0 Family history of malignant neoplasm of digestive organs; Z82.49 Family history of ischemic heart disease and other diseases of the circulatory system; Z87.11 Personal history of peptic ulcer disease; Z79.899 Other long term (current) drug therapy; Z68.22 Body mass index [BMI] 22.0-22.9, adult
CPT/HCPCS: 36415; 36600; 71045; 76700; 76937; 80048; 80053; 80305; 80320; 80377; 81003; 82105; 82140; 82375; 82533; 82550; 82805; 82947; 82962; 83036; 83525; 83605; 83880; 84134; 84145; 84206; 84443; 84484; 84681; 85025; 86337; 86850; 86900; 86920; 93005; 94640; 94660; 96365; 96367; 96375; 99291; C1725; J1940; J1956; J2405; J2543; J2930; J3475; J3490; J7060; J7070; J7611; J7620; P9016; G0480